=== PATIENT | male | born 2005 | race Caucasian/White ===

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

== ENCOUNTER → 2025-03-04 | Outpatient (CLI) | payer OTHER, SELFPAY ==
--- NOTE | 2025-03-04 16:14 | RAD_ITS ---
PROCEDURE: WRIST MIN 3 VIEWS 03/04/2025 REASON FOR EXAM: PERSISTENT LEFT WRIST PAIN TECHNIQUE: 4 view(s) of the left wrist COMPARISON: None FINDINGS: Mildly displaced subacute fracture scaphoid waist with mild sclerosis and claudication of the fracture margins. No other fractures are noted. Joint spaces are maintained. No significant soft tissue swelling. No radiopaque foreign body. RAD/Wrist min 3 Views IMPRESSION: Mildly displaced scaphoid waist subacute fracture. Reading Location: [facility]
== END | disposition home or self-care (01) ==
LOC: MTRAD 16:13
PROVIDERS: PCP Family Medicine; Referring Provider Physician Assistant Surgical; Visit Provider Physician Assistant Surgical
DX: S66.912A Strain of unspecified muscle, fascia and tendon at wrist and hand level, left hand, initial encounter (principal); M25.532 Pain in left wrist; G89.29 Other chronic pain; X58.XXXA Exposure to other specified factors, initial encounter
CPT/HCPCS: 73110

== ENCOUNTER 2025-06-01 08:00 | Outpatient (RCR) | payer OTHER, SELFPAY ==
--- NOTE | 2025-05-07 09:47 | HP.OTEVAL ---
Patient's Visit Information Visit Information Visit Information: LORETTA INTERIANO is a 20 year old M, referred to Occupational Therapy by REN GARCIA, with a diagnosis of left scaphoid fx. Date of Evaluation: 05/04/25 Occupational Therapist: Juliette Jamil, OTR/Leonardo, CHT Subjective Subjective: This 20 year old male was seen for OT eval with dx of scaphoid fx. Proximal third of navicular left wrist. pt states back in the spring he was playing basketball and fell. Pt states while getting his final exams done he just could not get in to see anyone. Pt state pain did not improve so he went to see Dr. 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 demo limited use of left UE for ADLs and IADLs. Pain left hand: Current Pain Intensity: 1 ROM Wrist: right 65/80 will test later date CMC: right 15 left +10 MP: right 60 left 50 IP: right 80 left 65 Strength Cutting Pressman: right 90# left NT Lateral Pinch: right 12# left NT Tripod Pinch: right 14# left NT Strength Comments: will test left at later date Edema Wrist: Right 16cm left 17.5 cm Sensation Sensation Comments: denies Quick DASH-Disab of Arm,Shoulder& Hand Quick DASH Score: 42.8550 Goals Goal:100% adherence to protocol: Yes Goal:Daily scar massage when approriate: Yes Goal:ROM equal to unaffected hand: Yes Comment: No Wrist ROM until Dr. jauregui healing Goal:Cutting Pressman/Pinch strength at least 75% of unaffected hand: Yes Comment: will not initiate until Dr. Baptiste Goal:No pain with affected hand use: Yes Goal:PIP Circumferences equal to unaffected hand: Yes Goal:Full use of affected hand in daily activities including work: Yes Other Goal: orthosis use: pt will demo understanding of orthosis use by end of 1st visit. Rehabilitation General Assessment: pt arrives 3 weeks s/p from ORIF of left proximal third scaphoid bone. Pt currently limited with use of left UE due to newly healing structures. Pt demo need of skilled OT services 1-2x week for 8-12 weeks to return pt to his PLOF. Today therapist ed. pt orthosis use, edema control, NWB and no lifting/push or pulling with left UE . therapist also ed. pt on tendon glides to decrease finger stiffness. Pt demo understanding and agree to POC. Rehabilitation Potential: Good Anticipated Interventions Anticipated Interventions: A/AAROM/PROM, Strengthening, Edema Control, Scar Care, Triggerpoint Release, Desensitization, Modalities, Orthoses, Joint Protection/Energy Conservation, Ergonomic Education, Fine Motor Coord/Kade, ADL Training, Education re assistive Equipment, Education re Diagnosis and Home Program Visit Plan Frequency: 1-2x /Week Duration: 2 Months General Plan: ED. pt on NO wrist motion NWB or push/pull use of left UE until cleared by Dr. BARRERA. pt on ROM of elbow and digits only at this time will monitor pts orthosis fit digit and elbow ROM until indicates fx is healing and allows for wrist ROM TEXT: Thank you for the opportunity to evaluate your patient. For Medicare and Medicare HMO plans, please review the plan of care and approve it. It will need to be FAXED BACK to us at [phone] for Medicare purposes. Please let me know if there are questions or concerns regarding this plan of care. Physician Signature: Date:
--- NOTE | 2025-06-01 08:10 | OTREVAL_ITS ---
Re-Evaluation Intro: REN GARCIA, It has been my pleasure to treat LORETTA INTERIANO over the last 3 visits for left scaphoid fx. Please see the progress note below for an update on the occupational therapy plan of care! Subjective Subjective: pt arrives 7 weeks s/p from scaphoid ORIF with graft. Objective Objective/Function: pt arrives 7 weeks s/p from scaphoid ORIF with graft. pt demo with full digit and thumb ROM Left forearm sup/pron WNL pt is using elastomer for scar. left wrist ROM will be tested when Dr. steel for motion- Plan Plan Plan: ed pt wrist ROM will initiate with a dart throwers motion when cleared by that fx is healed. pt will find CHT in [place] around [facility]. Goals Goals Patient Goals: Regain Mobility, Regain Strength, Decrease Pain, Use Hand/Wrist/Arm Normally Again and Resume Former Household Responsibilities (Cooking,Cleaning,Yard, etc.) Goal:100% adherence to protocol: Yes Goal:Daily scar massage when approriate: Yes Goal:ROM equal to unaffected hand: Yes Goal:Supervisor Logging/Pinch strength at least 75% of unaffected hand: Yes Goal:No pain with affected hand use: Yes Goal:PIP Circumferences equal to unaffected hand: Yes Goal:Full use of affected hand in daily activities including work: Yes Other Goal: orthosis use: pt will demo understanding of orthosis use by end of 1st visit. Anticipated Interventions Anticipated Interventions Anticipated Interventions: A/AAROM/PROM, Strengthening, Edema Control, Scar Care, Triggerpoint Release, Desensitization, Modalities, Orthoses, Joint Protection/Energy Conservation, Ergonomic Education, Fine Motor Coord/Kade, ADL Training, Education re assistive Equipment, Education re Diagnosis and Home Program Re-Evaluation Ending Re-evaluation ending: Please do not hesitate to contact me at [phone] by phone or if you have questions or concerns regarding this new plan of care! Sincerely, Juliette Jamil, OTR/L, CHT
== END 2025-06-01 19:00 | disposition home or self-care (01) ==
LOC: OT 08:00
PROVIDERS: PCP Family Medicine
DX: S62.032D Displaced fracture of proximal third of navicular [scaphoid] bone of left wrist, subsequent encounter for fracture with routine healing (principal)
CPT/HCPCS: 97140; 97166; 97530